=== PATIENT | male | born 1940 | race Caucasian/White ===

== ENCOUNTER 2019-06-22 09:30 | Emergency (ER) | payer OTHER ==
--- NOTE | 2019-06-22 10:21 | EDM.PDOC ---
ED HPI GENERAL MEDICAL PROBLEM - General Chief Complaint: General Stated Complaint: FALL VIA NORTH Time Seen by Provider: 06/22/19 09:58 Source of Information: Reports: Patient, RN Notes Reviewed History Limitations: Reports: No Limitations - History of Present Illness INITIAL COMMENTS - FREE TEXT/NARRATIVE: 78-year-old gentleman presents emergency department today via EMS services with complaint of fall at home. Patient states he has been having dizziness for over a year but [facility] however no etiology has been identified. He awoke this morning with a dizziness that was different than prior he describes the dizziness as room spinning he had went to go to the bathroom and then fell landing on his right hip. At this time he has no dizziness while lying down but does feel lightheaded upon standing. He can ambulate but feels unsteady on his feet due to lightheadedness. The dizziness he describes over the past year has predominantly been lightheadedness with no room spinning Right Hip Pain Score (Numeric/FACES): 3 - Related Data Allergies Allergy/AdvReac Type Severity Reaction Status Date / Time No Known Allergies Allergy Verified 06/22/19 09:35 Home Meds: Home Meds Finasteride [Proscar] 5 mg PO DAILY 06/22/19 [History] Ibrutinib [Imbruvica] 3 cap PO BEDTIME 06/22/19 [History] Latanoprost/Pf [Latanoprost 0.005% Eye Drop] 1 drop EYEBOTH BEDTIME 06/22/19 [ History] Leuprolide Acetate [Eligard] 45 mg SQ ASDIRECTED 06/22/19 [History] Pantoprazole [ProTONIX] 40 mg PO BIDMEALS 06/22/19 [History] Polyethylene Glycol 3350 [Miralax] 17 gm PO DAILY 06/22/19 [History] Pravastatin Sodium 10 mg PO BEDTIME 06/22/19 [History] Past Medical History HEENT History: Reports: Cataract Cardiovascular History: Reports: Hypertension Gastrointestinal History: Reports: Irritable Bowel Syndrome Genitourinary History: Reports: Other (See Below) Other Genitourinary History: frequent urination Musculoskeletal History: Reports: Arthritis Oncologic (Cancer) History: 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, Prostate, Other (See Below) Other Oncologic History: a bone marrow cancer (?) - Infectious Disease History Infectious Disease History: Reports: Chicken Pox, Measles, Mumps - Past Surgical History Head Surgeries/Procedures: Reports: None HEENT Surgical History: Reports: Cataract Surgery Cardiovascular Surgical History: Reports: None GI Surgical History: Reports: Cholecystectomy, Colonoscopy Male Surgical History: Reports: None Musculoskeletal Surgical History: Reports: None Dermatological Surgical History: Reports: None Social & Family History - Family History Family Medical History: Noncontributory - Tobacco Use Smoking Status *Q: Never Smoker Second Hand Smoke Exposure: No - Caffeine Use Caffeine Use: Reports: Coffee, Tea - Recreational Drug Use Recreational Drug Use: No ED ROS GENERAL - Review of Systems Review Of Systems: See Below Constitutional: Reports: No Symptoms HEENT: Reports: Vertigo Respiratory: Reports: No Symptoms Cardiovascular: Reports: No Symptoms GI/Abdominal: Reports: No Symptoms : Reports: No Symptoms Musculoskeletal: Reports: No Symptoms Neurological: Reports: Dizziness ED EXAM, GENERAL - Physical Exam Exam: See Below Free Text/Narrative:: Head impulse test: Negative loss of fixation with corrective saccades when head turned to the bilateral Nystagmus: unidirectional, horizontal 0-beating nystagmus Skew deviation: grossly absent Exam Limited By: No Limitations General Appearance: Alert, WD/WN, No Apparent Distress Head: Atraumatic, Normocephalic Neck: Normal Inspection, Supple, Non-Tender, Full Range of Motion Respiratory/Chest: No Respiratory Distress, Lungs Clear, Normal Breath Sounds, No Accessory Muscle Use, Chest Non-Tender Cardiovascular: Regular Rate, Rhythm, No Murmur GI/Abdominal: Soft, Non-Tender Extremities: Normal Inspection, Normal Range of Motion, Other (No tenderness to palpation over the right hip or pelvis) Course - Vital Signs Last Recorded V/S: Last Vital Signs Temp 96.7 F 06/22/19 09:33 Pulse 71 06/22/19 09:33 Resp 16 06/22/19 09:33 BP 152/90 H 06/22/19 09:33 Pulse Ox 97 06/22/19 09:33 - Orders/Labs/Meds Labs: Laboratory Tests 06/22/19 06/22/19 06/22/19 Range/Units 10:30 10:49 10:49 WBC 11.7 H (4.5-11.0) K/uL RBC 4.60 (4.30-5.90) M/uL Hgb 13.2 (12.0-15.0) g/dL Hct 41.6 (40.0-54.0) % MCV 90 (80-98) fL MCH 29 (27-31) pg MCHC 32 (32-36) % Plt Count 280 (150-400) K/uL Sodium 140 (140-148) mmol/L Potassium 4.2 (3.6-5.2) mmol/L Chloride 104 (100-108) mmol/L Carbon Dioxide 26 (21-32) mmol/L Anion Gap 10.1 (5.0-14.0) mmol/L BUN 30 H (7-18) mg/dL Creatinine 0.9 (0.8-1.3) mg/dL Est Cr Clr Drug Dosing 70.97 mL/min Estimated GFR (MDRD) > 60 (>60) Glucose 126 H (74-106) mg/dL Calcium 8.9 (8.5-10.1) mg/dL Urine Color Yellow (YELLOW) Urine Appearance Turbid A (CLEAR) Urine pH 7.5 (5.0-8.0) Ur Specific Bruno 1.020 (1.008-1.030) Urine Protein Negative (NEGATIVE) mg/dL Urine Glucose (UA) Negative (NEGATIVE) mg/dL Urine Ketones Negative (NEGATIVE) mg/dL Urine Occult Blood Trace-intact H (NEGATIVE) Urine Nitrite Negative (NEGATIVE) Urine Bilirubin Negative (NEGATIVE) Urine Urobilinogen 0.2 (0.2-1.0) EU/dL Ur Leukocyte Esterase Negative (NEGATIVE) Urine RBC 0-5 (0-5) Urine WBC 0-5 (0-5) Ur Epithelial Cells Not seen Amorphous Sediment Packed Urine Bacteria Few Urine Mucus Not seen Meds: Medications Discontinued Medications Generic Name Dose Route Start Last Admin Trade Name Freq PRN Reason Stop Dose Admin Meclizine HCl 25 mg 06/22/19 10:21 06/22/19 10:55 Antivert PO 06/22/19 10:22 25 mg ONETIME ONE Administration Departure - Departure Time of Disposition: 11:28 Disposition: Home, Self-Care 01 Condition: Fair Clinical Impression: Dizziness - Discharge Information Instructions: Vertigo, [id number] Referrals: PCP,None [Primary Care Provider] - Forms: ED Department Discharge Additional Instructions: Use meclizine as needed for dizzy symptoms, please followup with your primary care provider in 3-5 days if not better, please call return to the emergency department with worsening of symptoms. - Assessment/Plan Plan: Assessment Acuity = acute Site and laterality = dizziness with a fall onto her right hip Etiology = unknown Manifestations = none Location of injury = Home Lab values = CBC, BMP, urinalysis unremarkable right hip x-ray and pelvis showed no acute process Plan He had good improvement with meclizine discharged home with 15 tablets of meclizine 25 mg use as needed, follow-up primary care 3 to 5 days if no improvement This note was dictated using [employer] voice recognition software please call with any questions on syntax or grammar.
--- NOTE | 2019-06-22 10:53 | CRLCR ---
Indication: Follow-up. Technique: An AP view of the pelvis and two views of the right hip. Comparison: None Findings: Both femoral heads are seated within the acetabula. Degenerative changes of the hips are identified. No fracture or subluxation is identified. Impression: Degenerative change. No acute fracture. Dictated by Dora Martin MD @ Jun 22 2019 10:51AM Signed by Dr. Dora Martin @ Jun 22 2019 10:52AM
[2019-06-22] MEDS: Meclizine 25 MG Tab PO ONE (10:55)
== END 2019-06-22 11:42 | disposition home or self-care (01) ==
LOC: JP.ED 09:30
DX: R42 Dizziness and giddiness (principal); I10 Essential (primary) hypertension
CPT/HCPCS: 36415; 73502-RT; 80048; 81001; 85027; 99285-25; A9270-GY

== ENCOUNTER 2023-08-04 17:23 | Emergency (ER) | payer OTHER, MEDICARE ==
[2023-08-04 18:34] LABS: APPEARANCE,URINE CLEAR (CLEAR); BILIRUBIN,URINE SMALL (NEGATIVE); COLOR,URINE YELLOW (YELLOW); GLUCOSE,URINE NEGATIVE (NEGATIVE); KETONES,URINE 15 mg/dL (NEGATIVE); LEUKOCYTE ESTERASE,URINE NEGATIVE (NEGATIVE); NITRITE,URINE NEGATIVE (NEGATIVE); OCCULT BLOOD,URINE SMALL (NEGATIVE); PH,URINE 5.5 (5.0-8.0); PROTEIN,URINE 30 mg/dL (NEGATIVE)
[2023-08-04 18:36] LABS: AMORPHOUS SEDIMENT,URINE NOT SEEN; BACTERIA,URINE NOT SEEN; EPITHELIAL CELLS,URINE RARE; MUCUS,URINE MANY; RBC,URINE 20-30 (0-5); WBC,URINE 0-5 (0-5)
[2023-08-04 18:53] LABS: BASOPHILS ABSOLUTE AUTO 0.05 K/uL (0.00-0.10); BASOPHILS PERCENT AUTO 0.4 % (0.1-1.3); HEMOGLOBIN 15.2 g/dL (12.9-16.9); IMMATURE GRAN ABSOLUTE AUTO 0.09 K/uL (0.00-0.23); IMMATURE GRAN PERCENT AUTO 0.7 % (0.0-0.7); LYMPHOCYTES ABSOLUTE AUTO 2.09 K/uL (0.8-3.3); LYMPHOCYTES PERCENT AUTO 16.6 % (11.4-47.7); MEAN CORPUSCULAR HEMOGLOBIN 28.4 pg (31.6-35.5); MONOCYTES ABSOLUTE AUTO 1.58 K/uL (0.20-0.90); MONOCYTES PERCENT AUTO 12.5 % (3.3-12.6); NEUTROPHILS PERCENT AUTO 69.8 % (40.0-78.1); PLATELET COUNT,PLT 271 K/uL (130-375); RED BLOOD CELL COUNT 5.35 M/uL (4.14-5.76); WHITE BLOOD CELL COUNT,WBC 12.6 K/uL (3.2-11.0)
[2023-08-04] MEDS ORDERED: Sodium Chloride 0.9% 1,000 ML IV ONE (19:04)
[2023-08-04 19:12] LABS: BLOOD UREA NITROGEN,BUN 16 mg/dL (7-18); CARBON DIOXIDE,CO2 29 mmol/L (21-32); CHLORIDE,CL 100 mmol/L (100-108); EST CRCL DRUG DOSING (CG) 60.66 mL/min; ESTIMATED GFR 75 mL/min (>60); GLUCOSE RANDOM 98 mg/dL (74-106); POTASSIUM,K 4.2 mmol/L (3.6-5.2); SODIUM,NA 139 mmol/L (140-148)
[2023-08-04 19:13] LABS: ANION GAP 14.2 mmol/L (5.0-14.0); C-REACTIVE PROTEIN < 0.50 mg/dL (<0.50)
[2023-08-04] MEDS ORDERED: HYDROmorphone 0.5 MG/0.5 ML Syringe IVPUSH ONE (19:51)
[2023-08-04] MEDS ORDERED: Naloxone 0.4 MG/ML SDV IVPUSH PRN (19:51)
[2023-08-04] MEDS ORDERED: HYDROmorphone 0.5 MG/0.5 ML Syringe ONE (20:08)
[2023-08-04] MEDS ORDERED: Oxybutynin 5 MG Tab PO SCH (20:45)
[2023-08-04] MEDS ORDERED: Sodium Chloride 0.9% 50 ML IV SCH (21:15)
[2023-08-04] MEDS ORDERED: Iopamidol 612 MG/ML 100 ML Bottle IV SCH (21:15)
[2023-08-04] MEDS ORDERED: Alum Hydrox/Mag Hydrox/Simeth 15 ML, Lidocaine 2% 15 ML PO ONE ×2 (22:11)
[2023-08-04] MEDS ORDERED: Pantoprazole 40 MG Vial IVPUSH ONE (22:11)
[2023-08-04 22:13] LABS: A/G RATIO 1.2 (1.2-2.2); ALBUMIN 4.1 g/dL (3.4-5.0); BILIRUBIN DIRECT 0.16 mg/dL (0.0-0.2); BILIRUBIN INDIRECT 0.64; BILIRUBIN TOTAL 0.8 mg/dL (0.2-1.0); PROTEIN TOTAL,TP 7.6 g/dL (6.4-8.2)
== END 2023-08-04 23:00 | disposition home or self-care (01) ==
LOC: JP.ED 17:23
DX: N32.89 Other specified disorders of bladder (principal); K21.9 Gastro-esophageal reflux disease without esophagitis; I10 Essential (primary) hypertension; E78.00 Pure hypercholesterolemia, unspecified; Z79.899 Other long term (current) drug therapy
CPT/HCPCS: 36415; 74177; 80048; 80076; 81001; 83605; 83690; 85025; 86140; 96361; 96374; 96375; 99284; A9270; C9113; J1170; J3490; J7030; Q9967